=== PATIENT | male | born 2000 | race American Indian/Alaskan Native ===

== ENCOUNTER 2019-01-14 14:24 | Outpatient (CLI) | payer MEDICAID ==
[2019-01-14 14:47] LABS: Hemoglobin 12.7 gm/dl (11.8-15.2); Mean Corpuscular HGB Conc 33 % (32-34); Mean Corpuscular Hemoglobin 27 pg (28-32); Mean Corpuscular Volume 80 fl (84-94); Platelet Count 254 K/mm3 (140-440); Red Blood Count 4.73 M/mm3 (3.65-5.03); Red Cell Distribution Width 19.6 % (13.2-15.2)
[2019-01-14 15:24] LABS: Alanine Aminotransferase 24 units/L (7-56); Albumin 4.2 g/dL (3.9-5); BUN/Creatinine Ratio 13; Blood Urea Nitrogen 10 mg/dL (9-20); Calcium 8.8 mg/dL (8.4-10.2); Chol/HDL Ratio 3.33 %; HDL Cholesterol 51 mg/dL (40-59); Hemolysis Index 2; LDL Cholesterol,Direct 109 mg/dL (50-130)
[2019-01-14 16:03] LABS: Total Cells Counted 100
[2019-01-14 16:04] LABS: RBC Morphology Normal
== END 2019-01-14 14:25 | disposition home or self-care (01) ==
LOC: LAB 14:24
PROVIDERS: ATTEND Psychiatry & Neurology Child & Adolescent Psychiatry
DX: F84.0 Autistic disorder (principal); F63.81 Intermittent explosive disorder; F72 Severe intellectual disabilities; Z72.89 Other problems related to lifestyle
CPT/HCPCS: 36415; 80053; 80061; 80164; 83036; 84146; 84443; 85007; 85025